=== PATIENT | female | born 1945 | race Caucasian/White ===

== ENCOUNTER 2023-10-08 15:57 | Inpatient (IN) ==
[2023-10-08 17:31] LABS: Basophils # (auto) 0.07 K/uL (0.00-0.20); Basophils % (auto) 1.4 %; Eosinophils # (auto) 0.07 K/uL (0.00-0.50); Eosinophils % (auto) 1.4 %; Hematocrit (blood only) 37.4 % (37.0-47.0); Immature Granulocytes # (auto) 0.02 K/uL (0.01-0.20); Immature Granulocytes % (auto) 0.4 %; Lymphocytes # (auto) 1.42 K/uL (1.20-3.40); Lymphocytes % (auto) 27.8 %; Mean Corpuscular Hemoglobin 30.7 pg (25.0-34.0); Mean Corpuscular Hgb Conc 34.8 g/dL (32.0-36.0); Mean Corpuscular Volume 88.2 fL (80.0-100.0); Mean Platelet Volume 9.9 fL (9.4-12.4); Monocytes # (auto) 0.35 K/uL (0.11-0.59); Monocytes % (auto) 6.8 %; Neutrophils # (auto) 3.18 K/uL (1.40-6.50); Neutrophils % (auto) 62.2 %; Platelet Count 204 K/uL (130-400); RDW Coefficient of Variation 12.8 % (11.5-14.5); RDW Standard Deviation 41.7 fL (36.4-46.3); Red Blood Count 4.24 M/uL (4.20-5.40); White Blood Count 5.11 K/ul (4.8-10.8)
[2023-10-08 17:42] LABS: Alanine Aminotransferase 11 U/L (7-52); Albumin Globulin Ratio 1.3 (0.9-2); Albumin Level 4.1 gm/dl (3.4-5.0); Alkaline Phosphatase 60 U/L (34-104); Anion Gap 7 (3-11); Aspartate Aminotransferase 18 U/L (13-39); BUN Creatinine Ratio 23.8 (10-20); Bilirubin,Total 0.4 mg/dl (0.2-1.0); Blood Urea Nitrogen 20 mg/dl (6-23); Calcium 9.3 mg/dl (8.6-10.3); Carbon Dioxide 26 mmol/L (21-32); Chloride 105 mmol/L (98-107); Est GFR (African American) 78.2 ml/min; Est GFR (Non-African American) 67.5 ml/min; Globulin 3.1 gm/dl (2.5-4.0); Glucose 150 mg/dl (70-99(Fasting)); Potassium 3.7 mmol/L (3.5-5.1); Sodium 138 mmol/L (136-145); Total Protein 7.2 gm/dl (6.0-8.3)
--- NOTE | 2023-10-08 18:00 | Emergency Department Note ---
Impression & Plan Cellulitis of foot, right, Lymphedema of both lower extremities, CHF (congestive heart failure) ED Provider Note HISTORY OF PRESENT ILLNESS: Patient is a 78-year-old female presenting with right great toe pain. Patient reports that her foot has been very sore, most notably with any weightbearing for the last 2 weeks. She went and saw her [facility] doctor today and was sent to the emergency department due to concern for patient's inability to care for herself and concern for potential osteomyelitis. Patient reports that she has been wearing compression hose for the last 2 weeks and has not taken them off and did not notice her toe was red and swollen until the doctor's office cut her compression socks. Patient denies any direct injury to the foot or toe. Denies any fevers. Patient is unsure of her last tetanus shot. She also reportedly has been having some shortness of breath with minimal amounts of exertion. She has had significant increase in her lower extremity edema. She reports she has a history of lymphedema, but her legs are more swollen than normal. She states that her right leg seems more swollen than her left. She denies any DVT or PE history. She is not on any anticoagulation. ROS: as above PHYSICAL EXAM: Constitutional: Patient appears in no acute distress. Morbidly obese. HENT: Head: Normocephalic and atraumatic. Eyes: EOMI, PERRL Mouth/Throat: Mucous membranes moist. Neck: Trachea midline. Neck supple. Cardiovascular: RRR, No murmurs, rubs or gallops. Intact distal pulses. Pulmonary/Chest: No respiratory distress. Breath sounds clear and equal bilaterally. No wheezes or rales. Abdominal: Abdomen soft, no tenderness, rebound or guarding. Musculoskeletal: Patient has significant lymphedema to the bilateral lower extremities. Right lower extremity does seem slightly more edematous as compared to the left. She has very tight compression hose that extend from her bilateral ankles to her bilateral knees. Both feet appear very swollen, but right more so than left. Patient also noted to have significant dystrophic nails to the bilateral feet. Great toe toenails are poking through her socks. - RLE: Patient has significant swelling to the entirety of the foot. She is able to dorsiflex and plantarflex the right ankle. Good cap refill in all 5 toes. Her right toe is diffusely erythematous and noted to have a linear abrasion at the base of the medial aspect of the great toe. Sensation intact to light touch about the nerve distributions of the foot. No obvious drainage from the abrasion. Skin: Warm and dry. No rash, erythema, pallor or cyanosis Psychiatric: Appropriate mood and affect for situation. Neurological: Alert and keenly responsive. CN II-XII grossly intact, moving all extremities equally and fully. MDM: - Vitals signs showed hypertension. - History obtained via patient. History as above. - Chronic conditions affecting care: HLD; lymphedema; venous stasis; bipolar disorder; OA; obesity - Differential diagnoses include, but are not limited to: DVT; cellulitis of foot; CHF exacerbation; lymphedema; diabetic foot wound - Order placed for continuous cardiac monitoring. At this time, monitor showed rate of 70 bpm with normal sinus rhythm, per my interpretation. - External medical records reviewed. Primary care visit note from [facility] dated 10/08/2023 was reviewed. Patient presented there for 6-month follow-up and a new complaint of a sore right foot. They referred her to the emergency department due to cellulitis of the great toe on the right foot and concern for need for IV antibiotics and podiatry consult. Note reports that the abrasion on the patient's right great toe was secondary to her compression hose being too tight and cutting into her skin. - Laboratory workup interpreted by myself showed normal WBC; stable electrolytes; elevated BNP (123) - CXR negative for pneumonia, per my interpretation. Radiology notes pulmonary vascular congestion. - Xray of right foot negative for osteomyelitis per radiology. - US of RLE negative for DVT. - Given patient's swelling and pulmonary vascular congestion, in setting of her shortness of breath and right foot cellulitis, will admit - 80 mg IV lasix ordered. 1g IV rocephin ordered for antibiotic coverage. - Discussion was had with case packer about patient's case and need for admission - Hospitalist consulted for admission - Patient admitted to [facility] hospitalist service for further evaluation and management. ASSESSMENT AND PLAN: Diagnosis: Cellulitis of right foot; lymphedema bilateral lower extremities; CHF Plan: Admit Past Med/Surg History Medical History Bipolar 1 disorder Social History Smoking Status: Unknown if ever smoked Hx Alcohol Use: Yes Alcohol type: other Alcohol type Comment: Hard cider Alcohol Intake Frequency: Monthly or Less Preferred Language: Dutch Communication Ability: Effective Visual Impairment: No Limitations Hearing Ability: Normal Beliefs That Will Affect Care: None marital status: Single Current Living Situation: Alone current occupational status: disabled Feels Safe at Home: Yes Allergies Allergies Allergy/AdvReac Type Severity Reaction Status Date / Time No Known Allergies Allergy Verified 09/14/21 14:15 Home Meds Home Medications Medication Instructions Recorded Confirmed acetaminophen 325 mg tablet 325 mg PO QID PRN Pain 08/28/21 09/08/21 (Tylenol) multivitamin 1 tab PO DAILY 08/28/21 09/08/21 topiramate 100 mg tablet (Topamax) 100 mg PO HS 08/28/21 09/08/21 ziprasidone HCl 20 mg capsule 20 mg PO HS 08/28/21 09/08/21 (Geodon) Previous Rx's Medication Instructions Recorded ondansetron HCl 4 mg tablet 4 mg PO Q6H PRN nausea and 09/08/21 vomiting #10 tabs Results & Data (ED) Vital Signs Vital Signs - 24 hr 10/08/23 16:03 10/08/23 18:31 10/08/23 20:00 Temperature 36.1 C L Temperature Source Temporal Artery Scan Pulse Rate 64 62 Pulse Rate [Apical] 64 Respiratory Rate 19 16 Respiratory Effort / Characteristics Non-Labored Spontaneous Respiratory Depth Normal Blood Pressure 148/73 H Blood Pressure [Left Arm] 135/76 Blood Pressure Mean 98 Blood Pressure Mean [Left Arm] 95 Pulse Oximetry 97 98 Oxygen Delivery Method Room Air Sepsis Recent Fever Within 48 Hours No Sepsis New/Unexplained Change in Mental Status N/A Sepsis Action Taken by Nursing No Action Required 10/08/23 20:10 Temperature Temperature Source Pulse Rate Pulse Rate [Apical] 68 Respiratory Rate 21 Respiratory Effort / Characteristics Respiratory Depth Blood Pressure Blood Pressure [Left Arm] 144/77 H Blood Pressure Mean Blood Pressure Mean [Left Arm] 99 Pulse Oximetry 96 Oxygen Delivery Method Room Air Sepsis Recent Fever Within 48 Hours Sepsis New/Unexplained Change in Mental Status Sepsis Action Taken by Nursing Laboratory Data 10/08/23 16:53 10/08/23 16:53 Lab Results 10/08/23 10/08/23 Range/Units 16:53 19:49 WBC 5.11 (4.8-10.8) K/ul RBC 4.24 (4.20-5.40) M/uL Hgb 13.0 (12.0-16.0) g/dl Hct 37.4 (37.0-47.0) % MCV 88.2 (80.0-100.0) fL MCH 30.7 (25.0-34.0) pg MCHC 34.8 (32.0-36.0) g/dL RDW Std Deviation 41.7 (36.4-46.3) fL RDW Coeff of Kizzy 12.8 (11.5-14.5) % Plt Count 204 (130-400) K/uL MPV 9.9 (9.4-12.4) fL Immature Gran % (Auto) 0.4 % Neut % (Auto) 62.2 % Lymph % (Auto) 27.8 % Ventura % (Auto) 6.8 % Eos % (Auto) 1.4 % Baso % (Auto) 1.4 % Neut # (Auto) 3.18 (1.40-6.50) K/uL Lymph # (Auto) 1.42 (1.20-3.40) K/uL Ventura # (Auto) 0.35 (0.11-0.59) K/uL Eos # (Auto) 0.07 (0.00-0.50) K/uL Baso # (Auto) 0.07 (0.00-0.20) K/uL Immature Gran # (Auto) 0.02 (0.01-0.20) K/uL Sodium 138 (136-145) mmol/L Potassium 3.7 (3.5-5.1) mmol/L Chloride 105 (98-107) mmol/L Carbon Dioxide 26 (21-32) mmol/L Anion Gap 7 (3-11) BUN 20 (6-23) mg/dl Creatinine 0.84 (0.6-1.2) mg/dl Est Cr Clr Drug Dosing Not Reportable Est GFR ( Amer) 78.2 ml/min Est GFR (Non-Af Amer) 67.5 ml/min BUN/Creatinine Ratio 23.8 H (10-20) Glucose 150 H (70-99(Fasting)) mg/dl Calcium 9.3 (8.6-10.3) mg/dl Total Bilirubin 0.4 (0.2-1.0) mg/dl AST 18 (13-39) U/L ALT 11 (7-52) U/L Alkaline Phosphatase 60 (34-104) U/L B-Natriuretic Peptide 123 H (0-100) pg/ml Total Protein 7.2 (6.0-8.3) gm/dl Albumin 4.1 (3.4-5.0) gm/dl Globulin 3.1 (2.5-4.0) gm/dl Albumin/Globulin Ratio 1.3 (0.9-2) Administered Medications Discontinued Medications Furosemide (Furosemide 40 Mg/4 Ml Vial) 80 mg IV ONE ONE Stop: 10/08/23 20:30 Last Admin: 10/08/23 20:39 Dose: 80 mg Documented By: CAROLIN Ceftriaxone Sodium (Rocephin) 1,000 mg in 50 mls @ 100 mls/hr IV NOW STA Stop: 10/08/23 20:58 Last Admin: 10/08/23 20:39 Dose: 100 mls/hr Documented By: CAROLIN Imaging Data Radiologist's Impression: Foot X-Ray 10/08/23 16:10 RIGHT FOOT 3 VIEWS CLINICAL HISTORY: Right foot pain and swelling. Erythema. FINDINGS: 3 views of the right foot are obtained. No prior studies are available for comparison at the time of dictation. The skeletal structures are heterogeneously osteopenic. No fracture is seen. No bony erosion is identified. There are large dorsal and plantar heel spurs. Moderate osteoarthritic change is noted throughout the foot, greatest at the first metatarsophalangeal joint. There is degenerative spurring along the dorsal aspect of the tarsal bones. Diffuse soft tissue edema is seen throughout the foot. No soft tissue gas or radiodense foreign body is identified. IMPRESSION: 1. Soft tissue swelling with no acute bony abnormality identified. 2. Osteopenia with degenerative change and heel spurs as above. Dictated: 10/08/2023 6:56 PM Transcribed: 10/08/2023 7:00 PM Emanuel [id number] [email or web address] Electronically signed by: Randy Gallardo M.D. 10/08/2023 7:07 PM Venous Doppler Study 10/08/23 18:11 ULTRASOUND RIGHT LOWER EXTREMITY VENOUS CLINICAL HISTORY: Right leg swelling. COMPARISON STUDY: No priors. TECHNIQUE: Real-time, grayscale, and color Doppler sonography of the deep veins of the right lower extremity was performed from the inguinal crease to the calf. Compression and augmentation were utilized. FINDINGS: There is no sonographic evidence of deep venous thrombosis identified in the right lower extremity. The common femoral, superficial femoral, and popliteal veins are patent and normally compressible. The greater saphenous vein and the profunda femoris vein at the junction with the common femoral vein are clear. The visualized calf veins are patent. IMPRESSION: There is no sonographic evidence of deep venous thrombosis identified in the right lower extremity. ACT 112: Negative or not required by law. Electronically signed by: Randy Gallardo M.D. 10/08/2023 7:38 PM Chest X-Ray 10/08/23 18:19 SINGLE VIEW CHEST CLINICAL HISTORY: Dyspnea on exertion FINDINGS: An AP, portable, upright chest radiograph is compared to study dated 09/08/2021. The heart is enlarged but noting atherosclerotic calcification of the thoracic aorta. There is mild pulmonary vascular congestion. Chronic interstitial thickening is similar to previous. No airspace consolidation or large pleural effusion is identified. No pneumothorax is seen. The skeletal structures are osteopenic. The bony thorax is grossly intact. IMPRESSION: Cardiomegaly with mild pulmonary vascular congestion. ACT 112: Negative or not required by law. Electronically signed by: Randy Gallardo M.D. 10/08/2023 6:46 PM Discharge Plan Visit Data Chief Complaint: Leg Injury/Pain Stated Complaint: RLE PAIN/INFECTION ED Provider: Analisa Chowdhury Discharge Problem: Cellulitis of foot, right, Lymphedema of both lower extremities, CHF (congestive heart failure) Forms Stand Alone Forms: [facility] Prescriptions Prescriptions: No Action topiramate [Topamax] 100 mg tablet 100 mg PO HS ziprasidone HCl [Geodon] 20 mg capsule 20 mg PO HS Rx Instructions: give with food (meal/snack) multivitamin Tablet 1 tab PO DAILY acetaminophen [Tylenol] 325 mg tablet 325 mg PO QID PRN (Reason: Pain) ondansetron HCl 4 mg tablet 4 mg PO Q6H PRN (Reason: nausea and vomiting) Qty: 10 0RF Referrals Referrals: Chanel Cortes MD [Primary Care Provider] -
--- NOTE | 2023-10-08 18:48 | XRay Report ---
SINGLE VIEW CHEST CLINICAL HISTORY: Dyspnea on exertion FINDINGS: An AP, portable, upright chest radiograph is compared to study dated 09/08/2021. The heart i s enlarged but noting atherosclerotic calcification of the thoracic aorta. There is mild pulmonary va scular congestion. Chronic interstitial thickening is similar to previous. No airspace consolidation or large pleural effusion is identified. No pneumothorax is seen. The skeletal structures are osteope cesar. The bony thorax is grossly intact. IMPRESSION: Cardiomegaly with mild pulmonary vascular congestion. ACT 112: Negative or not required by law. Electronically signed by: Randy Gallardo M.D. 10/08/2023 6:46 PM
--- NOTE | 2023-10-08 19:09 | XRay Report ---
RIGHT FOOT 3 VIEWS CLINICAL HISTORY: Right foot pain and swelling. Erythema. FINDINGS: 3 views of the right foot are obtained. No prior studies are available for comparison at th e time of dictation. The skeletal structures are heterogeneously osteopenic. No fracture is seen. No bony erosion is identified. There are large dorsal and plantar heel spurs. Moderate osteoarthritic ch philip is noted throughout the foot, greatest at the first metatarsophalangeal joint. There is degenera tive spurring along the dorsal aspect of the tarsal bones. Diffuse soft tissue edema is seen througho ut the foot. No soft tissue gas or radiodense foreign body is identified. IMPRESSION: 1. Soft tissue swelling with no acute bony abnormality identified. 2. Osteopenia with degenerative change and heel spurs as above. Dictated: 10/08/2023 6:56 PM Transcribed: 10/08/2023 7:00 PM Emanuel [id number] [email or web address] Electronically signed by: Randy Gallardo M.D. 10/08/2023 7:07 PM
--- NOTE | 2023-10-08 19:39 | Ultrasound Report ---
ULTRASOUND RIGHT LOWER EXTREMITY VENOUS CLINICAL HISTORY: Right leg swelling. COMPARISON STUDY: No priors. TECHNIQUE: Real-time, grayscale, and color Doppler sonography of the deep veins of the right lower ex tremity was performed from the inguinal crease to the calf. Compression and augmentation were utilize d. FINDINGS: There is no sonographic evidence of deep venous thrombosis identified in the right lower ex tremity. The common femoral, superficial femoral, and popliteal veins are patent and normally luis sible. The greater saphenous vein and the profunda femoris vein at the junction with the common femor al vein are clear. The visualized calf veins are patent. IMPRESSION: There is no sonographic evidence of deep venous thrombosis identified in the right lower extremity. ACT 112: Negative or not required by law. Electronically signed by: Randy Gallardo M.D. 10/08/2023 7:38 PM
[2023-10-08] MEDS: cefTRIAXone SODIUM 1,000 MG/50 ML BAG IV STA (20:39)
[2023-10-08] MEDS: FUROSEMIDE 40 MG/4 ML VIAL IV ONE (20:39)
[2023-10-08 21:59] LABS: Thyroid Stimulating Hormone 3.464 uIu/ml (0.300-4.500)
[2023-10-08] MEDS: DOXYCYCLINE HYCLATE 100 MG in DEXTROSE 5% MINI-B 100 ML IV STA (22:01)
--- NOTE | 2023-10-08 22:39 | History & Physical Report ---
Date of Service October 08, 2023 Assessment & Plan (1) CHF (congestive heart failure): Plan: Acute CHF Rule out pulmonary hypertension secondary to undiagnosed DOMI as possible precipitant Right foot cellulitis History lymphedema No sepsis for now hyperlipidemia, not on statin Rx hx melanoma status post surgery ADHD/mood disorder, patient requiring direction to focus during encounter. Hyperglycemia rule out DM Possible functional disability PCU Diuretic Rx Strict I/Os, daily weights, CHF education Initiate beta-kin TTE, Cardiology consult Re: CHF Outpatient sleep study if patient amenable Doxycycline for right foot cellulitis Podiatry consult re: right foot cellulitis (Patient known to Dr. Leija.) Check hemoglobin A1c PT OT eval DVT prophylaxis. SCDs for now given occasional bloody drainage from right toe Lovenox 40 mg subcutaneous daily if bleeding resolved and H&H stable. Full code Text document was generated using S[employer]ze[employer] voice recognition software. It may contain grammatical or spelling errors. Kindly contact undersigned for clarification of any documentation item in question. History of Present Illness Chief Complaint: Right foot infection Primary Care Provider: Chanel Cortes MD History obtained from patient and records. Medical history significant for hyperlipidemia, chronic lymphedema, melanoma status post surgery, ADHD, mood disorder, hoarding behavior as per records. 2 weeks history of worsening right foot swelling which started from the great toe. Unable to go to renewable energy engineer to have toenail. Bloody drainage from right great toe. No fever, no chills. Shortness of breath on exertion. Patient seen at PCP's office. PCP told patient she gained 7 pounds from last visit 6 months ago. Admits to snoring symptoms but unaware of apneic episodes. Patient directed to ER for evaluation. IV Lasix administered at the ER. Medical History as above Surgical History : Tonsillectomy Family History : Heart disease Personal/Social history : Non-smoker, occasional EtOH intake, retired store employee Allergies Allergy/AdvReac Type Severity Reaction Status Date / Time No Known Allergies Allergy Verified 09/14/21 14:15 Home Medications Medication Instructions Recorded Confirmed Type acetaminophen 325 mg tablet 325 mg PO QID PRN Pain 08/28/21 10/09/23 History (Tylenol) multivitamin (Multiple Vitamins 1 tab PO DAILY 08/28/21 10/09/23 History tablet) topiramate 100 mg tablet (Topamax) 100 mg PO HS 08/28/21 10/09/23 History ziprasidone HCl 20 mg capsule 20 mg PO HS 08/28/21 10/09/23 History (Arnaud) ascorbic acid (vitamin C) 100 mg 100 mg PO DAILY 10/09/23 10/09/23 History chewable tablet bismuth subsalicylate 262 mg/15 mL 262 mg PO QID 10/09/23 10/09/23 History oral suspension ferrous sulfate 325 mg (65 mg 325 mg PO DAILY 10/09/23 10/09/23 History iron) tablet miscellaneous medical supply 10/09/23 10/09/23 History vitamin E 100 unit capsule 100 unit PO DAILY 10/09/23 10/09/23 History Past Med/Surg History Medical History Bipolar 1 disorder Social History Smoking Status: Never smoker Hx Alcohol Use: Yes Alcohol type: other Alcohol type Comment: Hard cider Alcohol Intake Frequency: Monthly or Less Hx Substance Use: No Preferred Language: Latvian Communication Ability: Effective Visual Impairment: No Limitations Hearing Ability: Normal Talent Program Manager Required: No Beliefs That Will Affect Care: None marital status: Single Current Living Situation: Alone current occupational status: disabled Other Information That Helps Us Care for You: No Feels Safe at Home: Yes Safety Concerns: Feels Safe At This Time Assistive Devices: Glasses Review of Systems Review of Systems: As per HPI, all other systems reviewed and negative Physical Exam Physical Exam: GENERAL: Comfortable, distractible, obese, unkempt, no respiratory distress SKIN: Normal color, warm HEENT: Adams palpebral conjunctivae, no ptosis, dry buccal mucosa NECK : Supple, no tenderness CHEST : CTA, no tenderness HEART : RRR, no obvious murmurs ABDOMEN: Some distention, nontender EXTREMITIES : Bilateral LE swelling right greater than the left, swollen right foot with erythematous tender great toe with dystrophic nail NEUROLOGIC : Coherent, no facial asymmetry, no other gross focality Results & Data Results & Data Vital Signs (Past 12 Hours) Vital Signs Temp Pulse Pulse Resp BP BP Pulse Ox 10/08/23 20:10 68 21 144/77 H 96 10/08/23 20:00 62 10/08/23 18:31 64 16 135/76 98 03/19/24 16:03 36.1 C L 64 19 148/73 H 97 O2 Del Method 10/08/23 20:10 Room Air 10/08/23 20:00 10/08/23 18:31 10/08/23 16:03 Room Air Laboratory Results Laboratory Results WBC 5.11 K/ul (4.8-10.8) 10/08/23 16:53 RBC 4.24 M/uL (4.20-5.40) 10/08/23 16:53 Hgb 13.0 g/dl (12.0-16.0) 10/08/23 16:53 Hct 37.4 % (37.0-47.0) 10/08/23 16:53 MCV 88.2 fL (80.0-100.0) 10/08/23 16:53 MCH 30.7 pg (25.0-34.0) 10/08/23 16:53 MCHC 34.8 g/dL (32.0-36.0) 10/08/23 16:53 RDW Std Deviation 41.7 fL (36.4-46.3) 10/08/23 16:53 RDW Coeff of Kizzy 12.8 % (11.5-14.5) 10/08/23 16:53 Plt Count 204 K/uL (130-400) 10/08/23 16:53 MPV 9.9 fL (9.4-12.4) 10/08/23 16:53 Immature Gran % (Auto) 0.4 % 10/08/23 16:53 Neut % (Auto) 62.2 % 10/08/23 16:53 Lymph % (Auto) 27.8 % 10/08/23 16:53 Nance % (Auto) 6.8 % 10/08/23 16:53 Eos % (Auto) 1.4 % 10/08/23 16:53 Baso % (Auto) 1.4 % 10/08/23 16:53 Neut # (Auto) 3.18 K/uL (1.40-6.50) 10/08/23 16:53 Lymph # (Auto) 1.42 K/uL (1.20-3.40) 10/08/23 16:53 Nance # (Auto) 0.35 K/uL (0.11-0.59) 10/08/23 16:53 Eos # (Auto) 0.07 K/uL (0.00-0.50) 10/08/23 16:53 Baso # (Auto) 0.07 K/uL (0.00-0.20) 10/08/23 16:53 Immature Gran # (Auto) 0.02 K/uL (0.01-0.20) 10/08/23 16:53 Sodium 138 mmol/L (136-145) 10/08/23 16:53 Potassium 3.7 mmol/L (3.5-5.1) 10/08/23 16:53 Chloride 105 mmol/L (98-107) 10/08/23 16:53 Carbon Dioxide 26 mmol/L (21-32) 10/08/23 16:53 Anion Gap 7 (3-11) 10/08/23 16:53 BUN 20 mg/dl (6-23) 10/08/23 16:53 Creatinine 0.84 mg/dl (0.6-1.2) 10/08/23 16:53 Est Cr Clr Drug Dosing Not Reportable 10/08/23 16:53 Est GFR ( Amer) 78.2 ml/min 10/08/23 16:53 Est GFR (Non-Af Amer) 67.5 ml/min 10/08/23 16:53 BUN/Creatinine Ratio 23.8 (10-20) H 10/08/23 16:53 Glucose 150 mg/dl (70-99(Fasting)) H 10/08/23 16:53 Calcium 9.3 mg/dl (8.6-10.3) 10/08/23 16:53 Magnesium 2.0 mg/dl (1.7-2.4) 10/08/23 16:53 Total Bilirubin 0.4 mg/dl (0.2-1.0) 10/08/23 16:53 AST 18 U/L (13-39) 10/08/23 16:53 ALT 11 U/L (7-52) 10/08/23 16:53 Alkaline Phosphatase 60 U/L (34-104) 10/08/23 16:53 B-Natriuretic Peptide 123 pg/ml (0-100) H 10/08/23 19:49 Total Protein 7.2 gm/dl (6.0-8.3) 10/08/23 16:53 Albumin 4.1 gm/dl (3.4-5.0) 10/08/23 16:53 Globulin 3.1 gm/dl (2.5-4.0) 10/08/23 16:53 Albumin/Globulin Ratio 1.3 (0.9-2) 10/08/23 16:53 TSH 3.464 uIu/ml (0.300-4.500) 10/08/23 16:53 Impressions Foot X-Ray 10/08/23 16:10 RIGHT FOOT 3 VIEWS CLINICAL HISTORY: Right foot pain and swelling. Erythema. FINDINGS: 3 views of the right foot are obtained. No prior studies are available for comparison at the time of dictation. The skeletal structures are heterogeneously osteopenic. No fracture is seen. No bony erosion is identified. There are large dorsal and plantar heel spurs. Moderate osteoarthritic change is noted throughout the foot, greatest at the first metatarsophalangeal joint. There is degenerative spurring along the dorsal aspect of the tarsal bones. Diffuse soft tissue edema is seen throughout the foot. No soft tissue gas or radiodense foreign body is identified. IMPRESSION: 1. Soft tissue swelling with no acute bony abnormality identified. 2. Osteopenia with degenerative change and heel spurs as above. Dictated: 10/08/2023 6:56 PM Transcribed: 10/08/2023 7:00 PM Emanuel [id number] [email or web address] Electronically signed by: Randy Gallardo M.D. 10/08/2023 7:07 PM Venous Doppler Study 10/08/23 18:11 ULTRASOUND RIGHT LOWER EXTREMITY VENOUS CLINICAL HISTORY: Right leg swelling. COMPARISON STUDY: No priors. TECHNIQUE: Real-time, grayscale, and color Doppler sonography of the deep veins of the right lower extremity was performed from the inguinal crease to the calf. Compression and augmentation were utilized. FINDINGS: There is no sonographic evidence of deep venous thrombosis identified in the right lower extremity. The common femoral, superficial femoral, and popliteal veins are patent and normally compressible. The greater saphenous vein and the profunda femoris vein at the junction with the common femoral vein are clear. The visualized calf veins are patent. IMPRESSION: There is no sonographic evidence of deep venous thrombosis smita ntified in the right lower extremity. ACT 112: Negative or not required by law. Electronically signed by: Randy Gallardo M.D. 10/08/2023 7:38 PM Chest X-Ray 10/08/23 18:19 SINGLE VIEW CHEST CLINICAL HISTORY: Dyspnea on exertion FINDINGS: An AP, portable, upright chest radiograph is compared to study dated 09/08/2021. The heart is enlarged but noting atherosclerotic calcification of the thoracic aorta. There is mild pulmonary vascular congestion. Chronic interstitial thickening is similar to previous. No airspace consolidation or large pleural effusion is identified. No pneumothorax is seen. The skeletal structures are osteopenic. The bony thorax is grossly intact. IMPRESSION: Cardiomegaly with mild pulmonary vascular congestion. ACT 112: Negative or not required by law. Electronically signed by: Randy Gallardo M.D. 10/08/2023 6:[address] right foot: 1. No acute fracture or subluxation. 2. Mild dorsal subcutaneous edema.. 3. There is mild swelling of the great toe, correlate for cellulitis. Evaluation for ulcers on the toes is limited due to large field of view. If there is concern for infection, consider MRI for further evaluation.
[2023-10-08] MEDS ORDERED: PROMETHAZINE HCL 12.5 MG in SODIUM CHLORIDE 0.9% 50 ML IV PRN (22:44)
[2023-10-08] MEDS: METOPROLOL TARTRATE 25 MG TAB PO STA (23:37)
[2023-10-09] MEDS: OPTIRAY 320 100ml IV ONE (00:21)
--- NOTE | 2023-10-09 00:57 | CT Scan Report ---
Exam(s): CT RIGHT FOOT With Contrast IV Amt: 93 ML OPTIRAY 320 EXAM: CT Right Lower Extremity With Intravenous Contrast, Foot CLINICAL HISTORY: Reason for exam: swelling. TECHNIQUE: Axial computed tomography images of the right foot with intravenous contrast. CTDI is 24.91 mGy and DLP is 608.86 mGy-cm. Automated exposure control was utilized for the study. A dose lowering technique was utilized adhering to the principles of ALARA. CONTRAST: Patient received 93 ML OPTIRAY 320 of IV contrast COMPARISON: No relevant prior studies available. FINDINGS: Bones/joints: Heel spur measures 7 mm. Moderate dorsal midfoot arthropathy, primarily consisting of joint space narrowing and dorsal ossific spurring. Diffuse osseous demineralization. No acute fracture or subluxation. No acute fracture or subluxation. Soft tissues: Mild dorsal subcutaneous edema.. There is mild swelling of the great toe, correlate for cellulitis. Evaluation for ulcers on the toes is limited due to large field of view. No radiopaque foreign body. Other findings: Pes planus deformity. IMPRESSION: 1. No acute fracture or subluxation. 2. Mild dorsal subcutaneous edema.. 3. There is mild swelling of the great toe, correlate for cellulitis. Evaluation for ulcers on the toes is limited due to large field of view. If there is concern for infection, consider MRI for further evaluation. Electronically signed by: Holger Bui MD 10/09/23 00:56 AM
[2023-10-09] MEDS: oxyCODONE HCL IR 5 MG TAB (IMMEDIATE RELEASE) PO PRN (01:04)
[2023-10-09] MEDS: TOPIRAMATE 100 MG TAB PO SCH (03:40)
[2023-10-09] MEDS: ACETAMINOPHEN 325 MG TAB PO PRN (05:18)
--- NOTE | 2023-10-09 08:06 | Cardiology Consultation ---
Date of Consultation October 09, 2023 Assessment & Plan (1) Lymphedema of both lower extremities: Present on Admission?: Yes (2) Cellulitis of foot, right: Present on Admission?: Yes (3) Obesity (BMI 30.0-34.9): Present on Admission?: Yes (4) Venous stasis ulcers of both lower extremities: Present on Admission?: Yes (5) Elevated brain natriuretic peptide (BNP) level: Present on Admission?: Yes Plan Admitted with R leg cellulitis. NSR/SB on telemetry with occasional PVCs and PACs CXR indicated mild pulmonary vascular congestion. Nonpitting edema noted to both lower legs BNP elevated slightly, but she does not appear volume overloaded on exam Echo completed outpatient 2 years ago was normal, repeat has been requested Continue ABX for cellulitis per primary service Additional recommendations pending results of ECHO Case discussed with Dr. Husain. Will follow. I spent a total of 40 minutes on the date of service in preparation, delivery, and documentation of the care provided to the patient excluding any time spent in the performance of separately billed services. DEVYN Thomas Department of Cardiology, [facility] This chart was completed in part utilizing Speech Voice Recognition Software. Grammatical errors, random word insertions, pronoun errors, and incomplete sentences are an occasional consequence of this system due to software limitations, ambient noise, and hardware issues. Any formal questions or concerns about the content, text, or information contained within the body of this dictation should be directly addressed to the provider for clarification. Supervising Physician Co-Signing Physician Notes I have reviewed the advance practitioner's documentation, and I agree with, and take responsibility for the plan of care. 78-year-old female referred to the emergency department for IV antibiotic therapy. History of chronic lymphedema and venous insufficiency. Denies recent chest discomfort, unusual shortness of breath, orthopnea, or PND. Denies personal history of coronary disease, congestive heart failure, or rheumatic fever as a child. Reports family history of atrial fibrillation. Telemetry reveals sinus rhythm. ECG: Normal sinus rhythm, normal ECG. PE: VSS. General: NAD, awake alert orient x 3. Heart: Regular rhythm, normal S1-S2. No murmur. Lungs: Clear bilateral, no rales, rhonchi, wheeze. Extremities: + Bilateral lymphedema, nonpitting, + stasis changes. A/P: 78-year-old female admitted with right lower extremity cellulitis, possible osteomyelitis. Chest x-ray read as possible pulmonary vascular congestion, however, no evidence of acute decompensated heart failure per physical exam with chronic lymphedema. Echocardiogram reveals preserved LV systolic function without secondary valvular pathology. Patient appears euvolemic on exam. No further cardiac testing or intervention recommended at this time. Cardiology will sign off. Please call with additional concerns/questions. I spent a total of 25 minutes on the date of service in preparation, delivery, and documentation of the care provided to this patient, excluding any time spent in the performance of separately billed services. History of Present Illness Reason for Consultation: CHF Requesting Physician: Dr. Petersen Attending Physician: Zonia Atkins MD History of Present Illness 78 year old female seen in consultation today in regard to acute weight gain. She has a known past medical history of HLD, lymphedema, Venous Stasis, Bipolar disorder, hoarding disorder, OA, and obesity. Was in to see her PCP for routine 6 month follow up yesterday and was found to have weight gain and a significant sore on the right foot. Referred to the ED for admission for IV abx for further management. Reported that she was feeling well until the 7th of this month and noticed that she had a wound to the right foot. Does notice some shortness of breath when walking but equates this to her gait weakness. Denies chest pain, palpitations, orthopnea. Denies any personal cardiac Hx. There is some cardiac issues in her family but she is not sure of the specifics. Allergies Allergy/AdvReac Type Severity Reaction Status Date / Time No Known Allergies Allergy Verified 09/14/21 14:15 Home Medications Medication Instructions Recorded Confirmed Type acetaminophen 325 mg tablet 325 mg PO QID PRN Pain 08/28/21 10/09/23 History (Tylenol) multivitamin (Multiple Vitamins 1 tab PO DAILY 08/28/21 10/09/23 History tablet) topiramate 100 mg tablet (Topamax) 100 mg PO HS 08/28/21 10/09/23 History ziprasidone HCl 20 mg capsule 20 mg PO HS 08/28/21 10/09/23 History (Geodon) ascorbic acid (vitamin C) 100 mg 100 mg PO DAILY 10/09/23 10/09/23 History chewable tablet bismuth subsalicylate 262 mg/15 mL 262 mg PO QID 10/09/23 10/09/23 History oral suspension ferrous sulfate 325 mg (65 mg 325 mg PO DAILY 10/09/23 10/09/23 History iron) tablet miscellaneous medical supply 10/09/23 10/09/23 History vitamin E 100 unit capsule 100 unit PO DAILY 10/09/23 10/09/23 History Patient History Medical History Bipolar 1 disorder Social History Smoking Status: Never smoker Hx Alcohol Use: Yes Alcohol type: other Alcohol type Comment: Hard cider Alcohol Intake Frequency: Monthly or Less Hx Substance Use: No Preferred Language: Chadian Communication Ability: Effective Visual Impairment: No Limitations Hearing Ability: Normal Activities Therapist Required: No Beliefs That Will Affect Care: None marital status: Single Current Living Situation: Alone current occupational status: disabled Other Information That Helps Us Care for You: No Feels Safe at Home: Yes Safety Concerns: Feels Safe At This Time Assistive Devices: None Review of Systems Review of Systems: All systems reviewed & are unremarkable except as noted in HPI & below Respiratory: + dyspnea on exertion; no cough Cardiovascular: + edema; no chest pain and no palpitatio ns Gastrointestinal: + bloating; no nausea Integumentary: + problem reported (right foot wound) Neurologic: + gait abnormality and + generalized wea kness Physical Exam Constitutional: WD/WN, vitals as above well developed, cooperative and + overweight Eyes: EOM intact bilaterally Neck: trachea midline, no thyromegaly normal visual inspection and + facial hair Respiratory: normal respiratory effort, lungs clear to auscultation Cardiovascular: Rate/Rhythm: regular rate and regular rhythm Heart Sounds: normal S1 and normal S2 Vessels: radial pulses present and popliteal pulses present; no JVD and no carotid bruit Extremities: normal capillary refill, + pedal edema and + edema Gastrointestinal (Abdomen): normal bowel sounds, soft, nontender, no hepatosplenomegaly Inspection/Auscultation: + abdomen distended Musculoskeletal: no cyanosis or clubbing, extremities motor strength 5/5 Skin: + wound (right great toe, dressing to ri ght ankle) Neurologic: moves all extremities and awake Cranial Nerves: EOM intact bilaterally Psychiatric: Orientation: alert and oriented x 3 Eye Contact: good eye contact Results & Data Vital Signs (Past 12 Hours) Vital Signs Temp Pulse Pulse Resp BP BP Pulse Ox 10/09/23 03:54 36.5 C 64 18 145/73 H 94 10/09/23 00:27 60 19 135/91 94 10/09/23 00:23 36.6 C 59 L 20 155/80 H 98 10/08/23 23:18 60 19 135/91 94 10/08/23 20:10 68 21 144/77 H 96 10/08/23 20:00 62 O2 Del Method 10/09/23 03:54 Room Air 10/09/23 00:27 Room Air 10/09/23 00:23 Room Air 10/08/23 23:18 Room Air 10/08/23 20:10 Room Air 10/08/23 20:00 Laboratory Results Cardiac Enzymes 10/08/23 10/08/23 Range/Units 16:53 19:49 AST 18 (13-39) U/L B-Natriuretic Peptide 123 H (0-100) pg/ml Coagulation 10/08/23 Range/Units 19:49 B-Natriuretic Peptide 123 H (0-100) pg/ml CBC 10/08/23 Range/Units 16:53 WBC 5.11 (4.8-10.8) K/ul RBC 4.24 (4.20-5.40) M/uL Hgb 13.0 (12.0-16.0) g/dl Hct 37.4 (37.0-47.0) % Plt Count 204 (130-400) K/uL Neut # (Auto) 3.18 (1.40-6.50) K/uL Lymph # (Auto) 1.42 (1.20-3.40) K/uL Loving # (Auto) 0.35 (0.11-0.59) K/uL Eos # (Auto) 0.07 (0.00-0.50) K/uL Baso # (Auto) 0.07 (0.00-0.20) K/uL Comprehensive Metabolic Panel 10/08/23 Range/Units 16:53 Sodium 138 (136-145) mmol/L Potassium 3.7 (3.5-5.1) mmol/L Chloride 105 (98-107) mmol/L Carbon Dioxide 26 (21-32) mmol/L BUN 20 (6-23) mg/dl Creatinine 0.84 (0.6-1.2) mg/dl Glucose 150 H (70-99(Fasting)) mg/dl Calcium 9.3 (8.6-10.3) mg/dl AST 18 (13-39) U/L ALT 11 (7-52) U/L Alkaline Phosphatase 60 (34-104) U/L Total Protein 7.2 (6.0-8.3) gm/dl Albumin 4.1 (3.4-5.0) gm/dl Intake and Output 10/08/23 10/09/23 10/09/23 22:59 06:59 14:59 Intake Total 50 / 150 100 / 150 Output Total 600 / 600 Balance 50 / 150 100 / 150 -600 / -600 Intake: IV 50 / 150 100 / 150 Doxycycline Hyclate 100 mg In 100 / 100 Dextrose 5% Mini-B 100 ml @ 50 mls/hr IV NOW STA Rx#:[id number] cefTRIAXone SODIUM 1,000 mg In 50 / 50 50 ml @ 100 mls/hr IV NOW STA Rx#:[id number] Output: Urine Amount (Catheter) 600 / 600 Cruz/Indwelling 600 / 600 Other: Weight 106.4 kg 100.9 kg Weight Measurement Method Built in [facility] Built in [facility] Diagnostic Findings Prior Echo at [facility] 10/24/21 The examination is adequate to evaluate the referral indication. The LV wall thickness is mildly increased (concentric). The left ventricular wall motion is normal. Calculated LV ejection Fraction = 56% (bi-plane method of discs). The left ventricular diastolic function is mildly abnormal (grade I). There is no evidence of pulmonary hypertension. CXR 10/08/23 IMPRESSION: Cardiomegaly with mild pulmonary vascular congestion. Medications Administered Current Inpatient Medications Acetaminophen (Acetaminophen 325 Mg Tab) 650 mg PO Q4H PRN PRN Reason: Pain or Fever Stop: 11/08/23 00:21 Last Admin: 10/09/23 05:18 Dose: 650 mg Bismuth Subsalicylate (Bismuth Subsalicylate Liqd 236 Ml) 15 ml PO QID DARLINE Stop: 11/08/23 08:59 Doxycycline Hyclate (Doxycycline Hyclate 100 Mg Cap) 100 mg PO BID DARLINE Stop: 10/16/23 08:59 Ferrous Sulfate (Ferrous Sulfate 325 Mg Tab) 325 mg PO DAILY DARLINE Stop: 11/08/23 08:59 Promethazine HCl 12.5 mg/ (Sodium Chloride) 50.5 mls @ 202 mls/hr IV Q6H PRN PRN Reason: Nausea And Vomiting Stop: 11/07/23 22:43 Metoprolol Tartrate (Metoprolol Tartrate 25 Mg Tab) 12.5 mg PO BID DARLINE Stop: 11/08/23 08:59 Multivitamins (Multivitamin Tab) 1 tab PO DAILY DARLINE Stop: 11/08/23 08:59 Oxycodone HCl (Oxycodone Hcl Ir 5 Mg Tab (Immediate Release)) 5 mg PO Q4H PRN PRN Reason: Pain Stop: 10/22/23 22:43 Last Admin: 10/09/23 01:04 Dose: 5 mg Topiramate (Topiramate 100 Mg Tab) 100 mg PO HS [facility] Stop: 11/08/23 02:14 Last Admin: 10/09/23 03:40 Dose: 100 mg Ziprasidone (Ziprasidone Hcl 20 Mg Cap) 20 mg PO HS [facility] Stop: 11/08/23 02:14 Last Admin: 10/09/23 03:39 Dose: 20 mg
[2023-10-09 08:14] LABS: Basophils # (auto) 0.05 K/uL (0.00-0.20); Basophils % (auto) 0.9 %; Eosinophils # (auto) 0.17 K/uL (0.00-0.50); Eosinophils % (auto) 3.2 %; Hematocrit (blood only) 36.1 % (37.0-47.0); Hemoglobin 12.3 g/dl (12.0-16.0); Immature Granulocytes # (auto) 0.01 K/uL (0.01-0.20); Immature Granulocytes % (auto) 0.2 %; Lymphocytes # (auto) 1.86 K/uL (1.20-3.40); Mean Corpuscular Hemoglobin 30.4 pg (25.0-34.0); Mean Corpuscular Hgb Conc 34.1 g/dL (32.0-36.0); Mean Corpuscular Volume 89.1 fL (80.0-100.0); Mean Platelet Volume 9.7 fL (9.4-12.4); Monocytes # (auto) 0.49 K/uL (0.11-0.59); Monocytes % (auto) 9.2 %; Neutrophils # (auto) 2.74 K/uL (1.40-6.50); Neutrophils % (auto) 51.5 %; Platelet Count 196 K/uL (130-400); RDW Coefficient of Variation 12.8 % (11.5-14.5); RDW Standard Deviation 41.8 fL (36.4-46.3); Red Blood Count 4.05 M/uL (4.20-5.40); White Blood Count 5.32 K/ul (4.8-10.8)
[2023-10-09 08:34] LABS: Creatinine Clr Calc Pharmacy 74.7 ml/min; Est GFR (African American) 81.8 ml/min; Est GFR (Non-African American) 70.5 ml/min; Potassium 3.3 mmol/L (3.5-5.1)
[2023-10-09] MEDS: FUROSEMIDE 40 MG/4 ML VIAL IV ONE (08:53)
[2023-10-09] MEDS: METOPROLOL TARTRATE 25 MG TAB PO SCH (08:55)
[2023-10-09] MEDS: DOXYCYCLINE HYCLATE 100 MG CAP PO SCH (08:56)
[2023-10-09] MEDS: MULTIVITAMIN TAB PO SCH (08:57)
[2023-10-09] MEDS: FERROUS SULFATE 325 MG TAB PO SCH (08:57)
[2023-10-09] MEDS: BISMUTH SUBSALICYLATE LIQD 236 ML PO SCH (09:00)
--- NOTE | 2023-10-09 09:19 | Cardiology Consultation ---
Date of Consultation October 09, 2023 History of Present Illness Attending Physician: Zonia Atkins MD Allergies Allergy/AdvReac Type Severity Reaction Status Date / Time No Known Allergies Allergy Verified 09/14/21 14:15 Home Medications Medication Instructions Recorded Confirmed Type acetaminophen 325 mg tablet 325 mg PO QID PRN Pain 08/28/21 10/09/23 History (Tylenol) multivitamin (Multiple Vitamins 1 tab PO DAILY 08/28/21 10/09/23 History tablet) topiramate 100 mg tablet (Topamax) 100 mg PO HS 08/28/21 10/09/23 History ziprasidone HCl 20 mg capsule 20 mg PO HS 08/28/21 10/09/23 History (Geodon) ascorbic acid (vitamin C) 100 mg 100 mg PO DAILY 10/09/23 10/09/23 History chewable tablet bismuth subsalicylate 262 mg/15 mL 262 mg PO QID 10/09/23 10/09/23 History oral suspension ferrous sulfate 325 mg (65 mg 325 mg PO DAILY 10/09/23 10/09/23 History iron) tablet miscellaneous medical supply 10/09/23 10/09/23 History vitamin E 100 unit capsule 100 unit PO DAILY 10/09/23 10/09/23 History Patient History Medical History Bipolar 1 disorder Social History Smoking Status: Never smoker Hx Alcohol Use: Yes Alcohol type: other Alcohol type Comment: Hard cider Alcohol Intake Frequency: Monthly or Less Hx Substance Use: No Preferred Language: Turkmen Communication Ability: Effective Visual Impairment: No Limitations Hearing Ability: Normal Dinking Machine Operator Required: No Beliefs That Will Affect Care: None marital status: Single Current Living Situation: Alone current occupational status: disabled Other Information That Helps Us Care for You: No Feels Safe at Home: Yes Safety Concerns: Feels Safe At This Time Assistive Devices: Glasses Results & Data Vital Signs (Past 12 Hours) Vital Signs Temp Pulse Pulse Resp BP BP Pulse Ox 10/09/23 08:11 36.3 C L 56 L 19 128/75 94 10/09/23 03:54 36.5 C 64 18 145/73 H 94 03/20/24 00:27 60 19 135/91 94 10/09/23 00:23 36.6 C 59 L 20 155/80 H 98 10/08/23 23:18 60 19 135/91 94 O2 Del Method 10/09/23 08:11 Room Air 10/09/23 03:54 Room Air 10/09/23 00:27 Room Air 10/09/23 00:23 Room Air 10/08/23 23:18 Room Air
[2023-10-09 09:31] LABS: Estimated Average Glucose 120 mg/dl; Hemoglobin A1C 5.8 % (4.5-5.6)
--- NOTE | 2023-10-09 12:36 | Hospitalist Progress Note ---
Date of Service October 09, 2023 Assessment & Plan (1) Cellulitis of foot, right: Plan: Right foot cellulitis History lymphedema Patient has chronic lymphedema Based on history and exam, patient does not appear to be acute heart failure Echo was unremarkable Agree with Cardiology Acute heart failure ruled out Right foot cellulitis Continue doxycycline Foot CT did not show fracture/subluxation. Noted mild dorsal subcut edema, mild swelling of great toe Awaiting Podiatry eval History of melanoma status post surgery ADHD/mood disorder, patient requiring direction to focus during encounter. Hyperglycemia HBA1c 5.8. Prediabetes Provided education Get PT/OT eval DVT prophylaxis. hep sq I spent a total of 50 minutes coordinating, documenting and providing care for this patient excluding time spent in performance of separately billed services (2) CHF (congestive heart failure): Plan: e. Full code Text document was generated using [employer] voice recognition software. It may contain grammatical or spelling errors. Kindly contact undersigned for clarification of any documentation item in question. Admission and Anticipated Discharge Date Admission Date: October 08, 2023 Subjective Patient seen and examined Reports right foot pain Reports BYRD, chronic lymphedema Denied any other complaints on ROS Physical Exam Constitutional: + well hydrated; no acute distress +facial hair Eyes: PERRL, conjunctivae normal, anicteric sclerae ENMT: external ear and nose normal, oropharynx normal Respiratory: normal respiratory effort, lungs clear to auscultation Cardiovascular: Rate/Rhythm: regular rate and regular rhythm S1 S2 Gastrointestinal (Abdomen): normal bowel sounds, soft, nontender, no hepatosplenomegaly Musculoskeletal: + pedal edema Chronic stasis changes Poor hygiene, crusts on feet/toes Right great toe wound, erythema and tenderness Long dystrophic nails Neurologic: PERRL, EOMI, accommodation nl, no face palsy, no dysarthria Psychiatric: A+Ox3, euthymic affect Results & Data Results & Data Vital Signs (Past 12 Hours) Vital Signs Temp Pulse Resp BP Pulse Ox O2 Del Method 10/09/23 12:00 36.7 C 59 L 18 110/72 95 Room Air 10/09/23 09:53 Room Air 10/09/23 08:11 36.3 C L 56 L 19 128/75 94 Room Air 10/09/23 03:54 36.5 C 64 18 145/73 H 94 Room Air Laboratory Results Abnormal lab results 10/08/23 10/08/23 10/09/23 Range/Units 16:53 19:49 07:38 RBC 4.05 L (4.20-5.40) M/uL Hct 36.1 L (37.0-47.0) % Potassium 3.3 L (3.5-5.1) mmol/L BUN/Creatinine Ratio 23.8 H 21.0 H (10-20) Glucose 150 H (70-99(Fasting)) mg/dl Hemoglobin A1c 5.8 H (4.5-5.6) % B-Natriuretic Peptide 123 H (0-100) pg/ml
--- NOTE | 2023-10-09 15:49 | Electrocardiogram Report ---
Test Reason : Blood Pressure : / mmHG Vent. Rate : 064 BPM Atrial Rate : 064 BPM P-R Int : 188 ms QRS Dur : 086 ms QT Int : 428 ms P-R-T Axes : 038 013 051 degrees QTc Int : 441 ms Normal sinus rhythm Normal ECG When compared with ECG of 08-SEP-2021 10:12, Minimal criteria for Anteroseptal infarct are no longer Present Confirmed by Trell Avila ([id number]) on 10/09/2023 3:48:58 PM Referred By: REFERRED SELF Confirmed By:Brian Avila
[2023-10-09] MEDS: HEPARIN SOD 5,000 UNIT/0.5 ML VIAL SQ SCH (20:10)
--- NOTE | 2023-10-09 21:09 | Podiatry Consultation ---
Date of Consultation October 09, 2023 Assessment & Plan (1) Cellulitis of foot, right: (2) Chronic acquired lymphedema: (3) Tinea unguium: Plan patient was examined and evaluated. We discussed at length etiology and treatment for her right great toe abrasion and right foot cellulitis. She should do well on a short course of oral antibiotics for this especially given there is no deep ulceration or wound associated with it. The laceration around her toe was likely caused by her constrictive stockings which she should avoid to prevent future injury. compression can be harmful with advancing peripheral arterial disease as well. we did discuss that she can benefit from nail dao ridement in the outpatient setting. She can have this performed rather by us at our office or return to Dr. Leija's office. We are not affiliated with her but she can certainly call her office and schedule with them as well. As long as she remains stable otherwise, she can be discharged with 2 weeks of oral antibiotics for treatment of the cellulitis. she should benefit from topical antibiotic ointment or simply Vaseline ointment with an adhesive bandage to the great toe at the first metatarsophalangeal joint. No surgical intervention is planned at this time. I will plan on signing off at this time, but if she does have any complications or her foot worsens, please do not hesitate to reconsult as needed. History of Present Illness Reason for Consultation: Right foot infection Attending Physician: Zonia Atkins MD History of Present Illness Patient seen at bedside. She has multiple complaints and is difficult to reorient with her thought process. She states that she is a regular patient of Dr. Neeru Leija here in [place] but has not been able to see her for over a year for foot care. Her nails have gotten long over that time and she has also suffered from self-neglect of her feet for quite some time. She had an appointment with her PCP outpatient yesterday who identified cellulitis and a wound of the right hallux; she states that she had been wearing two pairs of compression stockings which became entrapped around her digits. Her PCP did have to cut these stockings off in the office. Now, she is interested in getting established for nail care again, but states she was essentially fired from Dr. Leija for missing too many appointments; she also "is a night owl" and has trouble scheduling appointments before 5:00PM. She denies any nausea, vomiting, fever, chills, and SOB. Allergies Allergy/AdvReac Type Severity Reaction Status Date / Time No Known Allergies Allergy Verified 09/14/21 14:15 Home Medications Medication Instructions Recorded Confirmed Type acetaminophen 325 mg tablet 325 mg PO QID PRN Pain 08/28/21 10/09/23 History (Tylenol) multivitamin (Multiple Vitamins 1 tab PO DAILY 08/28/21 10/09/23 History tablet) topiramate 100 mg tablet (Topamax) 100 mg PO HS 08/28/21 10/09/23 History ziprasidone HCl 20 mg capsule 20 mg PO HS 08/28/21 10/09/23 History (Geodon) ascorbic acid (vitamin C) 100 mg 100 mg PO DAILY 10/09/23 10/09/23 History chewable tablet bismuth subsalicylate 262 mg/15 mL 262 mg PO QID 10/09/23 10/09/23 History oral suspension ferrous sulfate 325 mg (65 mg 325 mg PO DAILY 10/09/23 10/09/23 History iron) tablet miscellaneous medical supply 10/09/23 10/09/23 History vitamin E 100 unit capsule 100 unit PO DAILY 10/09/23 10/09/23 History Patient History Medical History Bipolar 1 disorder Social History Smoking Status: Never smoker Hx Alcohol Use: Yes Alcohol type: other Alcohol type Comment: Hard cider Alcohol Intake Frequency: Monthly or Less Hx Substance Use: No Preferred Language: German Communication Ability: Effective Visual Impairment: No Limitations Hearing Ability: Normal Production Counter Required: No Beliefs That Will Affect Care: None marital status: Single Current Living Situation: Alone current occupational status: disabled Other Information That Helps Us Care for You: No Feels Safe at Home: Yes Safety Concerns: Feels Safe At This Time Assistive Devices: None Review of Systems Review of Systems: All systems reviewed & are unremarkable except as noted in HPI & below Constitutional: no fever, no chills, no sweats and no problem reported Eyes: no problem reported Ear, Nose, Mouth, Throat: no problem reported Respiratory: no cough, no wheezing and no problem reported Cardiovascular: + edema; no calf pain Gastrointestinal: no abdominal pain and no problem reported Genitourinary: no problem reported Musculoskeletal: + deformity and + swelling Integumentary: + wounds, + dry skin, + excessive hair g rowth and + nail changes Neurologic: + numbness and + paresthesia Psychiatric: no behavioral changes and no problem reported Endocrine: no problem reported Hematologic / Lymphatic: no problem reported Physical Exam Physical Exam: lower extremity focused exam: DP/PT pulses 1/4 bilaterallly. Advanced trophic changes are noted throughout the skin. There is diffuse xerosis of the skin with atrophy and flaking. There is diminished hair growth to the lower extremity. Nails are loosely, extremely elongated consistent with a round 1-2 years of growth without trimming. They are mycotic and dystrophic as well. No pain is noted on palpation of the clinical exam she does complain of them subjectively. She does have a fissure along the base of the first metatarsall, though this is confined to the epidermis without deep probing or active bleeding or purulence. No ascending cellulitis is appreciated. No focal increase in warmth is noted. CFT is brisk to the digits. Constitutional: well developed, well nourished, + altered mental status and + disheveled; no acute distress and + not well groomed Eyes: PERRL, conjunctivae normal, anicteric sclerae ENMT: external ear and nose normal, oropharynx normal Neck: trachea midline, no thyromegaly Respiratory: normal respiratory effort, lungs clear to auscultation normal respiratory effort; no respiratory distress Cardiovascular: RRR, no murmur, no edema Vessels: posterior tibial pulses present; + dorsalis pedis pulses abnormal Extremities: normal capillary refill and + pedal edema; no calf tenderness Musculoskeletal: no cyanosis or clubbing, extremities motor strength 5/5 Head/Neck/Chest: normocephalic and head atraumatic Extremities: extremities normal to inspection Skin: + turgor decreased, + wound, + skin atro phy, + crusts, + dry skin, + skin hypertrophy and + hair abnormality Trauma: + abrasion Neurologic: patellar DTR's 2+ bilat, sensation intact moves all extremities; + abnormal sensation to monofilament Psychiatric: A+Ox3, euthymic affect Apperance: + disheveled; + inappropriately groomed Thought Process: + tangential thought process and + flight of ideas; + thought process not linear or logical Results & Data Vital Signs (Past 12 Hours) Vital Signs Temp Pulse Pulse Resp BP Pulse Ox O2 Del Method 10/09/23 19:52 36.8 C 65 20 142/74 H 96 Room Air 10/09/23 16:17 36.7 C 64 18 155/75 H 96 Room Air 10/09/23 15:44 61 10/09/23 12:00 36.7 C 59 L 18 110/72 95 Room Air 10/09/23 09:53 Room Air Diagnostic Findings CT scan reveals no underlying osseous changes consistent with osteomyelitis. Only mild edema is noted to the great toe. Arthritic changes are noted throughout the foot and ankle. No other acute fractures or disloca o
[2023-10-10 04:47] LABS: Hematocrit (blood only) 36.7 % (37.0-47.0); Hemoglobin 12.7 g/dl (12.0-16.0); Mean Corpuscular Hemoglobin 30.7 pg (25.0-34.0); Mean Corpuscular Hgb Conc 34.6 g/dL (32.0-36.0); Mean Corpuscular Volume 88.6 fL (80.0-100.0); Platelet Count 196 K/uL (130-400); RDW Coefficient of Variation 12.8 % (11.5-14.5); RDW Standard Deviation 41.6 fL (36.4-46.3); Red Blood Count 4.14 M/uL (4.20-5.40); White Blood Count 4.97 K/ul (4.8-10.8)
[2023-10-10 04:50] LABS: BUN Creatinine Ratio 20.8 (10-20); Est GFR (African American) 66.6 ml/min; Est GFR (Non-African American) 57.4 ml/min; Potassium 3.6 mmol/L (3.5-5.1)
--- NOTE | 2023-10-10 13:15 | Discharge Summary ---
Date of Service October 10, 2023 Admission HPI Per Admitting Provider History obtained from patient and records. Medical history significant for hyperlipidemia, chronic lymphedema, melanoma status post surgery, ADHD, mood disorder, hoarding behavior as per records. 2 weeks history of worsening right foot swelling which started from the great toe. Unable to go to mechanical engineer to have toenail. Bloody drainage from right great toe. No fever, no chills. Shortness of breath on exertion. Patient seen at PCP's office. PCP told patient she gained 7 pounds from last visit 6 months ago. Admits to snoring symptoms but unaware of apneic episodes. Patient directed to ER for evaluation. IV Lasix administered at the ER. Medical History as above Surgical History : Tonsillectomy Family History : Heart disease Personal/Social history : Non-smoker, occasional EtOH intake, retired store employee Admission Exam Per Admitting Provider GENERAL: Comfortable, distractible, obese, unkempt, no respiratory distress SKIN: Normal color, warm HEENT: [place] palpebral conjunctivae, no ptosis, dry buccal mucosa NECK : Supple, no tenderness CHEST : CTA, no tenderness HEART : RRR, no obvious murmurs ABDOMEN: Some distention, nontender EXTREMITIES : Bilateral LE swelling right greater than the left, swollen right foot with erythematous tender great toe with dystrophic nail NEUROLOGIC : Coherent, no facial asymmetry, no other gross focality Principal Diagnosis Right foot cellulitis Discharge Exam Constitutional + well hydrated; no acute distress Eyes PERRL, conjunctivae normal, anicteric sclerae ENMT external ear and nose normal, oropharynx normal Respiratory normal respiratory effort, lungs clear to auscultation Cardiovascular Rate/Rhythm: regular rate and regular rhythm S1 S2 Gastrointestinal (Abdomen) normal bowel sounds, soft, nontender, no hepatosplenomegaly Musculoskeletal Chronic stasis changes Right great toe wound, erythema and tenderness Long dystrophic nails Neurologic PERRL, EOMI, accommodation nl, no face palsy, no dysarthria Psychiatric A+Ox3, euthymic affect Discharge Data Allergies Allergy/AdvReac Type Severity Reaction Status Date / Time No Known Allergies Allergy Verified 09/14/21 14:15 Consultations 10/08/23 20:51 ED Decision to Admit Stat 10/08/23 22:43 Consult Podiatry Routine 10/09/23 00:22 Consult Cardiology Routine Ordered Studies 10/08/23 18:11 US leg [US venous doppler LE RT] Stat 10/08/23 22:40 CT foot RT w con Stat Hospital Course (1) Cellulitis of foot, right: Right foot cellulitis History lymphedema Patient has chronic lymphedema Based on history and exam, patient does not appear to be acute heart failure Echo was unremarkable Agree with Cardiology Acute heart failure ruled out Right foot cellulitis Continue doxycycline to complete treatment Foot CT did not show fracture/subluxation. Noted mild dorsal subcut edema, mild swelling of great toe Podiatry evaluated and recommends po antibiotic and outpatient follow up with Podiatry for better management of foot issues History of melanoma status post surgery ADHD/mood disorder, patient requiring direction to focus during encounter. Hyperglycemia HBA1c 5.8. Prediabetes Provided education Total Time Total Time Spent Total Time Spent (In Minutes): 35 Total Time Includes: Examination of the Patient, Discharge Planning and Medication Reconciliation Discharge Plan Discharge Items Patient Disposition: Home - Self-Care Reason For Visit: Right foot swelling Discharge Diagnosis: Right foot cellulitis Activity: Resume your previous activity Non-emergency contact: Primary Care Provider Call non-emergency contact if: you have any medication questions and your symptoms worsen Follow-up/Referrals: Chanel Cortes MD [Primary Care Provider] - (Date & Time 10/15/2023 11:00 AM Provider Chanel Cortes MD Department General Internal Medicine [facility] ) Neeru Leija DPM [Outside Practitioners] - Garry Otoole DPM [Physician] - Diet: Heart Healthy Addtl Attending Provider Instructions: Ms Luna You came to the hospital due to right foot swelling and redness. You were managed for infection. You are being discharged on oral antibiotics to complete treatment. Please take better care of your legs. Please ensure follow up with Investigative Writer and your Family Doctor. It was a pleasure taking care of you. Pending Studies at Discharge: No Stand-Alone Forms: My [employer], Smoking Cessation Medications and DC Order Prescriptions: New doxycycline hyclate 100 mg Capsule 100 mg PO BID 12 Days Qty: 24 0RF bacitracin zinc-polymyxin B [Poly Bacitracin (zinc)] 500-10,000 unit/gram ointment 1 applic topical BID 10 Days Qty: 14.2 0RF Continued topiramate [Topamax] 100 mg tablet 100 mg PO HS ziprasidone HCl [Geodon] 20 mg capsule 20 mg PO HS Rx Instructions: give with food (meal/snack) multivitamin [Multiple Vitamins] Tablet 1 tab PO DAILY acetaminophen [Tylenol] 325 mg tablet 325 mg PO QID PRN (Reason: Pain) ferrous sulfate 325 mg (65 mg iron) Tablet 325 mg PO DAILY bismuth subsalicylate 262 mg/15 mL Suspension 262 mg PO QID vitamin E 100 unit Capsule 100 unit PO DAILY ascorbic acid (vitamin C) 100 mg Tablet,Chewable 100 mg PO DAILY Discontinued (DME) Compression Stockings Misc MISCELLANEOUS Discharge Orders: Discharge Order (Routine); Ordered 10/10/23 Ordered By: Zonia Atkins Admission Data Admit Date/Time: 10/08/23 22:41 Attending Provider: Zonia Atkins I. Admit Provider: Mohinder Petersen Primary Care Provider: Chanel Cortes Other Providers: Mohinder Petersen; Garry Otoole Other Interventions: Discharge Summary Assessment (RN) Last Done: 10/10/23 13:30
== END 2023-10-10 17:16 | disposition home or self-care (01) | DRG 603 ==
LOC: ED 15:57 → 4W 22:41